=== PATIENT | male | born 1940 | race Caucasian/White ===

== ENCOUNTER 2018-02-18 15:17 | Observation (INO) | payer MEDICARE, OTHER ==
[~2018-02-18] VITALS: Ht 170.2 cm; Wt 99.1 kg
[2018-02-18] MEDS ORDERED: LOSA1TAB22 PO (15:55)
[2018-02-18 15:56] LABS: BASOPHILS # (AUTO) 0.03 x10^3/uL (0-0.1); BASOPHILS % (AUTO) 0 % (0-1); EOSINOPHILS # (AUTO) 0.15 x10^3/uL (0-0.4); EOSINOPHILS % (AUTO) 2 % (1-7); LYMPHOCYTES # (AUTO) 2.39 x10^3/uL (1-3.4); LYMPHOCYTES % (AUTO) 30 % (22-44); MD NO; MEAN CORPUSCULAR HEMOGLOBIN 31.9 pg (27.5-34.5); MEAN CORPUSCULAR HGB CONC 33.7 g/dL (33.2-36.2); MEAN CORPUSCULAR VOLUME 94.8 fL (81-97); MEAN PLATELET VOLUME 8.5 fL (7.4-10.4); MONOCYTES # (AUTO) 0.81 x10^3/uL (0.2-0.8); MONOCYTES % (AUTO) 10 % (2-9); NEUTROPHILS # (AUTO) 4.65 x10^3/uL (1.8-6.8); NEUTROPHILS % (AUTO) 58 % (42-75); PLATELET COUNT 251 x10^3/uL (130-400); RED BLOOD COUNT 5.48 x10^6/uL (4.38-5.82); RED CELL DISTRIBUTION WIDTH 13.1 % (9.4-14.8)
[2018-02-18 16:07] LABS: ALANINE AMINOTRANSFERASE 46 U/L (12-78); ALBUMIN 3.5 g/dL (3.4-5.0); ANION GAP 4 mmol/L (5-15); CALCIUM 9.5 mg/dL (8.5-10.1); CHLORIDE 104 mmol/L (98-107); CREATININE 1.01 mg/dL (0.7-1.3)
[2018-02-18 16:11] LABS: ALKALINE PHOSPHATASE 94 U/L (45-117); BILIRUBIN,TOTAL 1.1 mg/dL (0.2-1.0); TOTAL PROTEIN 7.9 g/dL (6.4-8.2); TROPONIN I < 0.015 ng/mL (0.000-0.045)
[2018-02-18 16:28] LABS: MICROSCOPIC NOT IND
[2018-02-18] MEDS ORDERED: CEFTRIAXONE PMX 1GM/50ML 50 ML IVPB ONE (16:30)
[2018-02-18 16:31] LABS: CULTURE INDICATED? NO
[2018-02-18] MEDS ORDERED: CEFTRIAXONE PMX 1GM/50ML 50 ML ONE (16:31)
[2018-02-18] MEDS ORDERED: SODIUM CHLORIDE 0.9% 1,000 ML IV SCH (17:32)
[2018-02-18] MEDS ORDERED: ONDANSETRON 2MG/ML, 2ML IVPush PRN (18:00)
[2018-02-18] MEDS ORDERED: ACETAMINOPHEN 325 MG TABLET PO PRN (18:00)
[2018-02-18] MEDS ORDERED: HEPARIN 5,000 UNITS/ML, 1ML ONE (18:04)
[2018-02-18] MEDS: HEPARIN 5,000 UNITS/ML, 1ML SQ SCH (18:22)
[2018-02-18 18:29] LABS: CHOLESTEROL, TOTAL 182 mg/dL (140-239); TRIGLYCERIDES 207 mg/dL (50-200); VLDL CHOLESTEROL 41 mg/dL (0-25)
[2018-02-18 18:32] LABS: CHOL/HDL RATIO 5.2; HDL CHOL % 19 % (26-37); HDL CHOLESTEROL (DIRECT) 35 mg/dL (40-60); LDL CHOLESTEROL,CALCULATED 106 mg/dL (54-169); TROPONIN I < 0.015 ng/mL (0.000-0.045)
[2018-02-18 20:47] VITALS: BP 159/90
[2018-02-18 21:09] LABS: TROPONIN I < 0.015 ng/mL (0.000-0.045)
[2018-02-18 23:02] VITALS: BP_SYST 124; BP_SYST 138; BP_SYST 139; BP_DIAS 72; BP_DIAS 76; BP_DIAS 93
[2018-02-19 02:07] VITALS: BP 138/92
[2018-02-19] MEDS: HEPARIN 5,000 UNITS/ML, 1ML SQ SCH ×2 (02:08→10:17)
[2018-02-19 05:27] LABS: ANION GAP 5 mmol/L (5-15); CALCIUM 9.1 mg/dL (8.5-10.1); CHLORIDE 106 mmol/L (98-107); CREATININE 1.01 mg/dL (0.7-1.3)
[2018-02-19] MEDS ORDERED: ASPIRIN 325 MG TABLET PO SCH (06:00)
[2018-02-19] MEDS ORDERED: REGADENOSON 0.4 MG/5 ML SYRINGE ONE (08:03)
[2018-02-19 11:15] VITALS: BP_SYST 130; BP_SYST 134; BP_SYST 151; BP_DIAS 83; BP_DIAS 84; BP_DIAS 91
[2018-02-19] MEDS ORDERED: PNEUMOCOCCAL 23 VACCINE IM-VACC ONE (12:00)
== END 2018-02-19 14:33 | disposition home or self-care (01) ==
LOC: ED 16:10 → EDIP 16:11 → INTOOBSV 16:11 → ED 17:03 → 5SO 19:49
PROVIDERS: ADMIT Internal Medicine; ATTEND Internal Medicine
DX: I95.1 Orthostatic hypotension (principal); I49.8 Other specified cardiac arrhythmias; R79.89 Other specified abnormal findings of blood chemistry; R42 Dizziness and giddiness; I10 Essential (primary) hypertension; G47.30 Sleep apnea, unspecified; Z23 Encounter for immunization
CPT/HCPCS: 36415; 70450; 71045; 78452; 80048; 80053; 80061; 81003; 83605; 84484; 85025; 87040; 90732; 93005; 93017; 94660; 96361; 96365; 96366; 96372; 99285; A9502; C8929; C9898; G0009; G0378; J0696; J1644; J2785; J7030

== ENCOUNTER 2018-06-04 11:34 | Inpatient (IN) | payer MEDICARE, OTHER ==
[~2018-06-04] VITALS: Ht 170.2 cm; Wt 104.1 kg
[~2018-06-04 11:34] MED LIST: LOSA1TAB22 PO
[2018-06-04] MEDS ORDERED: ACETAMINOPHEN 500 MG TABLET ONE (12:03)
[2018-06-04] MEDS ORDERED: DIPH,PERTUSS(ACELL),TET VAC/PF 0.5 ML IM-VACC ONE ×2 (12:30→12:41)
[2018-06-04] MEDS ORDERED: ACETAMINOPHEN 500 MG TABLET PO ONE (12:30)
[2018-06-04 13:51] LABS: BASOPHILS # (AUTO) 0.04 x10^3/uL (0-0.1); BASOPHILS % (AUTO) 1 % (0-1); EOSINOPHILS % (AUTO) 1 % (1-7); LYMPHOCYTES # (AUTO) 2.01 x10^3/uL (1-3.4); LYMPHOCYTES % (AUTO) 21 % (22-44); MD NO; MEAN CORPUSCULAR HEMOGLOBIN 31.3 pg (27.5-34.5); MEAN CORPUSCULAR HGB CONC 33.1 g/dL (33.2-36.2); MEAN CORPUSCULAR VOLUME 94.7 fL (81-97); MEAN PLATELET VOLUME 8.8 fL (7.4-10.4); MONOCYTES % (AUTO) 6 % (2-9); NEUTROPHILS # (AUTO) 6.95 x10^3/uL (1.8-6.8); NEUTROPHILS % (AUTO) 72 % (42-75); PLATELET COUNT 231 x10^3/uL (130-400); RED BLOOD COUNT 5.35 x10^6/uL (4.38-5.82); RED CELL DISTRIBUTION WIDTH 12.9 % (9.4-14.8)
[2018-06-04 14:02] LABS: ANION GAP 6 mmol/L (5-15); CALCIUM 9.4 mg/dL (8.5-10.1); CHLORIDE 104 mmol/L (98-107); CREATININE 0.85 mg/dL (0.7-1.3)
[2018-06-04 14:10] LABS: INTERNATIONAL NORMALIZED RATIO 1.03 (0.93-1.1); PROTHROMBIN TIME 10.7 Seconds (9.6-11.5)
[2018-06-04] MEDS ORDERED: EPINEPHRINE SYRINGE 0.1 MG/ML, 10ML ONE (14:43)
[2018-06-04] MEDS ORDERED: ONDANSETRON 2MG/ML, 2ML ONE (14:44)
[2018-06-04] MEDS ORDERED: LOSA1TAB19 PO (14:53)
[2018-06-04] MEDS ORDERED: APIX5TAB PO (14:53)
[2018-06-04] MEDS ORDERED: SODIUM CHLORIDE 0.9%, 500ML IVBOLUS ONE (15:00)
[2018-06-04] MEDS ORDERED: POLYETHYLENE GLYCOL 17 GM PACKET PO PRN (15:00)
[2018-06-04] MEDS ORDERED: LABETALOL 5MG/ML, 20ML IVPush PRN (15:00)
[2018-06-04] MEDS ORDERED: ENALAPRILAT 1.25 MG/ML, 2ML IVPush PRN (15:00)
[2018-06-04] MEDS ORDERED: morphine SULFATE 10 MG/ML, 1ML IVPush PRN (15:00)
[2018-06-04] MEDS ORDERED: BISACODYL 10 MG SUPP PR PRN (15:00)
[2018-06-04] MEDS ORDERED: DOCUSATE 100 MG CAPSULE PO PRN (15:00)
[2018-06-04] MEDS: OXYcodone IR 5MG TABLET PO PRN ×2 (16:12→22:50)
[2018-06-04] MEDS: LOSARTAN 50MG TABLET PO SCH (20:34)
[2018-06-04] MEDS: ONDANSETRON ODT 4 MG PO PRN (22:30)
[2018-06-05] MEDS: OXYcodone IR 5MG TABLET PO PRN (03:26)
[2018-06-05] MEDS: ONDANSETRON ODT 4 MG PO PRN (04:02)
[2018-06-05] MEDS ORDERED: PROMETHAZINE 25 MG/ML, 1ML IM ONE (04:30)
[2018-06-05 04:43] VITALS: BP 144/65
[2018-06-05] MEDS ORDERED: PROMETHAZINE 25 MG/ML, 1ML IM PRN ×2 (05:00→16:00)
[2018-06-05] MEDS: SENNA/DOCUSATE TABLET PO SCH (07:57)
[2018-06-05] MEDS: ACETAMINOPHEN 325 MG TABLET PO PRN (07:57)
[2018-06-05] MEDS ORDERED: LOSARTAN 50MG TABLET PO SCH (09:00)
[2018-06-05] MEDS ORDERED: HYDROCHLOROTHIAZIDE 12.5 MG CAPSULE PO SCH (09:00)
[2018-06-05] MEDS: PANTOPRAZOLE 40 MG IV IVPush SCH (09:41)
[2018-06-05] MEDS ORDERED: ONDANSETRON 2MG/ML, 2ML ONE (11:42)
[2018-06-05] MEDS: ONDANSETRON 2MG/ML, 2ML IVPush PRN ×2 (12:15→18:42)
[2018-06-05] MEDS: SODIUM CHLORIDE 0.9% 1,000 ML IV SCH (18:41)
[2018-06-05 20:19] VITALS: BP 164/78
[2018-06-05] MEDS: LOSARTAN 50MG TABLET PO SCH (21:58)
[2018-06-06 00:50] VITALS: BP 138/74
[2018-06-06 05:07] LABS: BASOPHILS # (AUTO) 0.03 x10^3/uL (0-0.1); BASOPHILS % (AUTO) 1 % (0-1); EOSINOPHILS # (AUTO) 0.28 x10^3/uL (0-0.4); EOSINOPHILS % (AUTO) 4 % (1-7); LYMPHOCYTES # (AUTO) 2.19 x10^3/uL (1-3.4); LYMPHOCYTES % (AUTO) 29 % (22-44); MD NO; MEAN CORPUSCULAR HEMOGLOBIN 31.9 pg (27.5-34.5); MEAN CORPUSCULAR HGB CONC 33.6 g/dL (33.2-36.2); MEAN CORPUSCULAR VOLUME 94.8 fL (81-97); MEAN PLATELET VOLUME 8.4 fL (7.4-10.4); MONOCYTES # (AUTO) 0.61 x10^3/uL (0.2-0.8); MONOCYTES % (AUTO) 8 % (2-9); NEUTROPHILS # (AUTO) 4.52 x10^3/uL (1.8-6.8); NEUTROPHILS % (AUTO) 59 % (42-75); PLATELET COUNT 196 x10^3/uL (130-400); RED BLOOD COUNT 4.35 x10^6/uL (4.38-5.82); RED CELL DISTRIBUTION WIDTH 12.8 % (9.4-14.8)
[2018-06-06 05:12] LABS: ALBUMIN 2.8 g/dL (3.4-5.0); ANION GAP 6 mmol/L (5-15); CALCIUM 8.5 mg/dL (8.5-10.1); CHLORIDE 106 mmol/L (98-107)
[2018-06-06 05:18] LABS: ALANINE AMINOTRANSFERASE 31 U/L (12-78); ALKALINE PHOSPHATASE 66 U/L (45-117); BILIRUBIN,TOTAL 2.1 mg/dL (0.2-1.0); TOTAL PROTEIN 6.6 g/dL (6.4-8.2)
[2018-06-06] MEDS: ACETAMINOPHEN 325 MG TABLET PO PRN ×3 (05:25→20:12)
[2018-06-06 06:39] VITALS: BP 116/54
[2018-06-06 07:50] VITALS: BP 126/75
[2018-06-06] MEDS: SODIUM CHLORIDE 0.9% 1,000 ML IV SCH (08:01)
[2018-06-06] MEDS: PANTOPRAZOLE 40 MG IV IVPush SCH (08:01)
[2018-06-06] MEDS: SENNA/DOCUSATE TABLET PO SCH (08:03)
[2018-06-06 12:16] VITALS: BP 115/68
[2018-06-06] MEDS: LOSARTAN 50MG TABLET PO SCH (20:12)
[2018-06-06 20:20] VITALS: BP 137/76
[2018-06-07 02:06] VITALS: BP 145/89
[2018-06-07] MEDS: ACETAMINOPHEN 325 MG TABLET PO PRN ×2 (02:11→07:22)
[2018-06-07 06:38] VITALS: BP 140/86
[2018-06-07] MEDS: SENNA/DOCUSATE TABLET PO SCH (07:23)
[2018-06-07] MEDS: PANTOPRAZOLE 40 MG IV IVPush SCH (07:23)
[2018-06-07 12:04] VITALS: BP 114/57
[2018-06-07] MEDS ORDERED: LOSA50TA2 PO (13:13)
[2018-06-07 13:56] LABS: ANION GAP 7 mmol/L (5-15); CALCIUM 8.7 mg/dL (8.5-10.1); CHLORIDE 106 mmol/L (98-107); CREATININE 0.81 mg/dL (0.7-1.3)
[2018-06-07 14:00] LABS: TROPONIN I 0.017 ng/mL (0.000-0.045)
== END 2018-06-07 15:11 | DRG 183 ==
LOC: ED 12:10 → EDIP 14:16 → CCU 15:42 → 5SO 06-05 15:30
PROVIDERS: ADMIT Internal Medicine; ATTEND Internal Medicine
PROC: 0HQ0XZZ Repair Scalp Skin, External Approach (ICD-10-PCS; principal; 2018-06-04)
DX: S22.42XA Multiple fractures of ribs, left side, initial encounter for closed fracture (principal); S06.5X0A Traumatic subdural hemorrhage without loss of consciousness, initial encounter; S12.500A Unspecified displaced fracture of sixth cervical vertebra, initial encounter for closed fracture; S52.502A Unspecified fracture of the lower end of left radius, initial encounter for closed fracture; I47.2 Ventricular tachycardia; E44.0 Moderate protein-calorie malnutrition; G47.33 Obstructive sleep apnea (adult) (pediatric); I11.9 Hypertensive heart disease without heart failure; I48.2 Chronic atrial fibrillation; K59.00 Constipation, unspecified; S01.01XA Laceration without foreign body of scalp, initial encounter; W11.XXXA Fall on and from ladder, initial encounter; Y93.89 Activity, other specified; Y92.89 Other specified places as the place of occurrence of the external cause; Y99.8 Other external cause status; Z79.01 Long term (current) use of anticoagulants; Z79.899 Other long term (current) drug therapy; Z86.79 Personal history of other diseases of the circulatory system; W22.09XA Striking against other stationary object, initial encounter
CPT/HCPCS: 36415; 70450; 71045; 72125; 74021; 80048; 80053; 83735; 84100; 84443; 84484; 85014; 85018; 85025; 85610; 85730; 86850; 86900; 87081; 90715; 93005; 96361; 96372; 99291; G0378; J2405; Q0162; C9113; J7030; J7040